=== PATIENT | male | born 1935 | race Caucasian/White ===

== ENCOUNTER 2017-04-04 18:59 | Emergency (ER) | payer MEDICARE, BC ==
[2017-04-04] MEDS ORDERED: Adacel (T-DAP) 0.5 ML VIAL ONE (20:00)
== END 2017-04-04 20:35 | disposition home or self-care (01) ==
LOC: SCSER 18:59
DX: S51.802A Unspecified open wound of left forearm, initial encounter (principal); W19.XXXA Unspecified fall, initial encounter; W45.8XXA Other foreign body or object entering through skin, initial encounter
CPT/HCPCS: 90471; 90715

== ENCOUNTER 2018-04-14 08:35 | Outpatient (CLI) | payer MEDICARE, BC ==
[2018-04-14] MEDS ORDERED: ADENOSINE 60 MG/20 ML VIAL ONE (10:01)
--- NOTE | 2018-04-14 13:44 | NM ---
MYOCARDIAL PERFUSION SCAN WITH SPECT IMAGING: HISTORY: Chest pain. TECHNIQUE/FINDINGS: Examination is performed using 33 mCi 99m-technetium sestamibi on the stress and 10.9 on the resting images. This shows a fairly normal distribution of radiopharmaceutical. No signs of ischemia or scar. WALL MOTION: There is symmetric but generally diminished contraction of the left ventricle. LEFT VENTRICULAR EJECTION FRACTION: The calculated left ventricular ejection fraction is 46%. IMPRESSION: 1. No evidence of ischemic change. 2. Global hypokinesis with a left ventricular ejection fraction of 46%. Please correlate with echoca rdiogram. POS: CONCEPCIÓN
== END 2018-04-14 08:36 | disposition home or self-care (01) ==
LOC: NM 08:35
PROVIDERS: ATTEND Internal Medicine
DX: R07.9 Chest pain, unspecified (principal); I51.89 Other ill-defined heart diseases
CPT/HCPCS: 78452; 93017; A9500; J0153

== ENCOUNTER 2020-07-14 09:48 | Outpatient (CLI) | payer MEDICARE, BC ==
[2020-07-14 12:26] LABS: Hemoglobin 14.9 g/dL (13.5-17.5); Mean Corpuscular HGB CONC 33.7 g/dL (32.0-36.0); Mean Corpuscular Hemoglobin 34.7 pg (27.0-33.0); Mean Corpuscular Volume 102.8 fl (81.2-95.1); Mean Platelet Volume 10.7 fl (7.4-10.4); Platelet Count 141 10x3/uL (150-450); RBC Distribution Width 12.8 % (11.5-14.5); White Blood Cell (WBC) Count 5.5 10x3/uL (3.5-10.5)
[2020-07-14 13:05] LABS: Anion Gap 13 mmol/L (10-20); BUN (Urea Nitrogen) 14 mg/dL (8.4-25.7); Calc. Creatinine Clearance 0 mL/min (70-130); Calcium 8.6 mg/dL (7.8-10.44); Carbon Dioxide 25 mmol/L (23-31); Chloride 103 mmol/L (98-107); Glucose 161 mg/dL (83-110); Potassium 4.1 mmol/L (3.5-5.1); Sodium 137 mmol/L (136-145)
[2020-07-14 20:11] LABS: SARS-CoV-2 PCR by NAA Not Detected (NotDetected)
== END 2020-07-14 09:49 | disposition home or self-care (01) ==
LOC: LABBT 09:48
PROVIDERS: ATTEND Otolaryngology Plastic Surgery within the Head & Neck
DX: Z01.818 Encounter for other preprocedural examination (principal); H72.91 Unspecified perforation of tympanic membrane, right ear; H90.5 Unspecified sensorineural hearing loss; Z20.822 Contact with and (suspected) exposure to COVID-19
CPT/HCPCS: 80048; 85027; 93005; U0003; U0005; 87635; 93010

== ENCOUNTER 2020-07-19 06:01 | Day surgery (SDC) | payer MEDICARE, BC ==
[2020-07-18 15:57] VITALS: BMI 26.6
[2020-07-19] MEDS ORDERED: Famotidine/PF 20 mg/2ml Vial ONE (06:23)
[2020-07-19] MEDS ORDERED: Ketorolac Tromethamine 30 MG/ML VIAL ONE (06:24)
[2020-07-19] MEDS ORDERED: Ciprofloxacin 0.2% Otic (0.25ML CONTAINER) ONE (06:42)
[2020-07-19] MEDS ORDERED: Lidocaine 1% w/Epinephrine 1:100K 20 ML VIAL ONE (06:42)
[2020-07-19] MEDS ORDERED: PROPOFOL 200 MG/20 ML VIAL ONE (07:29)
[2020-07-19] MEDS ORDERED: Ondansetron ODT 4 MG TAB ONE (09:05)
== END 2020-07-19 09:10 | disposition home or self-care (01) ==
LOC: SDC 06:01
PROVIDERS: ATTEND Otolaryngology Plastic Surgery within the Head & Neck
PROC: 09U777Z Supplement Right Tympanic Membrane with Autologous Tissue Substitute, Via Natural or Artificial Opening (ICD-10-PCS; principal; 2020-07-19)
DX: H72.91 Unspecified perforation of tympanic membrane, right ear (principal); H90.71 Mixed conductive and sensorineural hearing loss, unilateral, right ear, with unrestricted hearing on the contralateral side; G47.33 Obstructive sleep apnea (adult) (pediatric); H69.80 Other specified disorders of Eustachian tube, unspecified ear; I10 Essential (primary) hypertension; I25.10 Atherosclerotic heart disease of native coronary artery without angina pectoris; E11.9 Type 2 diabetes mellitus without complications; K21.9 Gastro-esophageal reflux disease without esophagitis; Z79.4 Long term (current) use of insulin; Z79.82 Long term (current) use of aspirin; Z79.899 Other long term (current) drug therapy; Z88.8 Allergy status to other drugs, medicaments and biological substances; Z95.1 Presence of aortocoronary bypass graft
CPT/HCPCS: 36416; J1885; J2704; Q0162; S0028

== ENCOUNTER 2020-08-03 19:30 | Outpatient (CLI) | payer MEDICARE, BC | END 2020-08-03 19:31 | disposition home or self-care (01) | LOC: SLEEPLAB 19:30 | PROVIDERS: ATTEND Otolaryngology Plastic Surgery within the Head & Neck | DX: G47.33 Obstructive sleep apnea (adult) (pediatric) (principal); R06.83 Snoring; G47.00 Insomnia, unspecified; K21.9 Gastro-esophageal reflux disease without esophagitis; G47.10 Hypersomnia, unspecified; I25.10 Atherosclerotic heart disease of native coronary artery without angina pectoris; G47.31 Primary central sleep apnea | CPT/HCPCS: 95810 ==